=== PATIENT | male | born 1975 | race Two or more races ===

== ENCOUNTER 2019-11-04 00:59 | Inpatient (IN) | payer MEDICAID, OTHER ==
[~2019-11-04] VITALS: Ht 177.8 cm; Wt 124.3 kg
--- NOTE | 2019-11-04 01:01 | NUR ---
PT BIB [facility] C/O SI W/ A PLAN TO RUN INTO TRAFFIC. PER REPORT "PT DRANK 40 OZ OF ALCOHOL". PT AAOX4, VSS, RESPIRATIONS EVEN AND UNLABORED ON RA W/ NAD NOTED. PT CHANGED INTO GOWN, BELONGINGS PLACED TO LOCKER, SUICIDE PRECAUTIONS IMPLEMENTED. SITTER AT BEDSIDE FOR SAFETY. PT CONNECTED TO THE ELECTRONICS ASSEMBLER AND POX. CALL LIGHT WITHIN REACH
--- NOTE | 2019-11-04 01:09 | NUR ---
SHAREPOINT CONSULTANT AT BEDSIDE FOR BLOOD DRAW
[2019-11-04 01:34] LABS: BASOPHILS % (AUTO) 0.2 % (0.0-2.0); HEMATOCRIT 47 % (39-51); HEMOGLOBIN 15.7 g/dL (13.5-17.5); LYMPHOCYTES # (AUTO) 1.4 /CMM (0.8-4.8); LYMPHOCYTES % (AUTO) 11.1 % (20.0-44.0); MEAN CORPUSCULAR HGB CONC 33 g/dl (31.0-36.0); MEAN CORPUSCULAR VOLUME 91 fL (80-96); MONOCYTES # (AUTO) 0.7 /CMM (0.1-1.30); MONOCYTES % (AUTO) 5.5 % (2.0-12.0); NEUTROPHILS # (AUTO) 10.7 /CMM (1.8-8.9); NEUTROPHILS % (AUTO) 83.2 % (43.0-81.0); PLATELET COUNT (AUTO) 207 /CMM (150-450); RED BLOOD CELL COUNT(AUTO) 5.16 MIL/uL (4.5-6.0); WHITE BLOOD COUNT (AUTO) 12.9 K/uL (4.3-11.0)
[2019-11-04 01:54] LABS: ALBUMIN 4.3 g/dL (3.4-5.0); BILIRUBIN,DIRECT 0.5 mg/dL (0.0-0.2); CALCIUM, SERUM 8.2 mg/dL (8.5-10.1); CREATININE 1.1 mg/dL (0.6-1.3); POTASSIUM 3.8 mmol/L (3.5-5.1); SALICYLATE 4.1 mg/dL (2.8-20.0); TOTAL PROTEIN, SERUM 8.4 g/dL (6.4-8.2)
[2019-11-04] MEDS ORDERED: ACETAMINOPHEN ES 500 MG TABLET ONE (03:12)
[2019-11-04] MEDS ORDERED: IBUPROFEN 600 MG TABLET ONE (03:15)
[2019-11-04] MEDS ORDERED: ACETAMINOPHEN ES 500 MG TABLET PO ONE (03:30)
[2019-11-04] MEDS ORDERED: IBUPROFEN 600 MG TABLET PO ONE (03:30)
[2019-11-04] MEDS ORDERED: OLANZAPINE 5 MG TABLET ONE (03:33)
[2019-11-04] MEDS ORDERED: LIDOCAINE 2% JEL UROJET 10 ML MM ONE ×2 (03:37→04:00)
--- NOTE | 2019-11-04 03:48 | NUR ---
URINE COLLECTED AND SENT TO LAB
[2019-11-04 03:55] LABS: APPEARANCE,URINE CLEAR (CLEAR); BILIRUBIN,URINE SMALL (NEGATIVE); BLOOD, URINE MODERATE Ery/uL (NEGATIVE); COLOR,URINE YELLOW (YELLOW); KETONES,URINE 40 (NEGATIVE); LEUKOCYTE ESTERASE ,URINE NEGATIVE (NEGATIVE); NITRITE, URINE NEGATIVE (NEGATIVE); PROTEIN,URINE >=300 mg/dl (NEGATIVE); UGLUCOSE NEGATIVE (NEGATIVE); UROBILINOGEN,URINE 0.2 EU/dL (0.2)
[2019-11-04 03:59] LABS: BACTERIA,URINE Few /HPF (None Seen); FINE GRANULAR CASTS,URINE Few /LPF (None Seen); MUCUS,URINE Few /LPF (None Seen); SQUAMOUS EPITHELIAL CELL,UR Few /HPF (None Seen); WBC,URINE 0-2 /HPF (0-3)
[2019-11-04] MEDS ORDERED: OLANZAPINE 5 MG TABLET PO ONE (04:00)
[2019-11-04] MEDS ORDERED: CHLORDIAZEPOXIDE HCL 25 MG CAPSULE ONE (05:58)
[2019-11-04] MEDS ORDERED: CHLORDIAZEPOXIDE HCL 25 MG CAPSULE PO ONE (06:00)
[2019-11-04] MEDS ORDERED: IV NS 0.9% 1,000 ML BAG IV ONE ×2 (07:00→08:30)
--- NOTE | 2019-11-04 07:07 | NUR ---
RT AT BEDSIDE FOR ABG
[2019-11-04 07:12] LABS: ABG OXYGEN SATURATION 96.1 % (92.0-98.5); ABG PCO2 22.5 mmHg (35.0-45.0); ABG PH 7.436 (7.350-7.450); ABG PO2 90.1 mmHg (75.0-100.0); AaDO2 32.7 mmHg; COHb 0.7 % (0.5-1.5); MetHb 0.5 % (0.0-1.5); O2Hb 94.9 % (94.0-97.0); SITE, ABG Right Radial; VENT MODE, BG room air
[2019-11-04] MEDS ORDERED: LORAZEPAM INJ 2 MG/ML VIAL ONE ×2 (07:16→08:33)
--- NOTE | 2019-11-04 07:23 | NUR ---
PATIENT AA/OX4, BREATHING EVEN AND UNLABORED, KEPT COMFORTABLE. TACHYCARDIC ON MONITOR, MD AWARE.
[2019-11-04] MEDS ORDERED: LORAZEPAM INJ 2 MG/ML VIAL IV ONE ×2 (07:30→08:30)
--- NOTE | 2019-11-04 08:41 | NUR ---
PATIENT RESTING, NO DISTRESS NOTED. DENIES PAIN AT THIS TIME.
--- NOTE | 2019-11-04 08:46 | NUR ---
CALLED [facility]... SULLIVAN
--- NOTE | 2019-11-04 09:26 | NUR ---
CALLED [facility] AGAIN... NATE
[2019-11-04] MEDS ORDERED: ASPIRIN 81 MG TAB.CHEW PO ONE (09:30)
[2019-11-04] MEDS ORDERED: ASPIRIN 81 MG TAB.CHEW ONE (09:52)
--- NOTE | 2019-11-04 09:59 | NUR ---
LAB CALLED [facility]. (-)
--- NOTE | 2019-11-04 10:15 | NUR ---
REPORT GIVEN TO ROBYN HARMON.
--- NOTE | 2019-11-04 10:59 | NUR ---
PATIENT TRANSFERRED TO ROOM 114-1 VIA ACLS PROTOCOL IN STABLE CONDITION. NEEDS ATTENDED. KEPT COMFORTABLE.
[2019-11-04] MEDS ORDERED: MAG HYDROX/AL HYDROX/SIMETH 30 ML UDC PO PRN (11:00)
[2019-11-04] MEDS ORDERED: MORPHINE SULFATE INJ 2 MG/ML DISP.SYRIN IV PRN (11:00)
[2019-11-04] MEDS ORDERED: Z GUARD REMEDY 2 OZ OINT TP PRN (11:00)
[2019-11-04] MEDS ORDERED: LORAZEPAM INJ 2 MG/ML VIAL IV PRN (11:00)
[2019-11-04] MEDS ORDERED: MAGNESIUM HYDROXIDE 30 ML UDC PO PRN (11:00)
[2019-11-04] MEDS ORDERED: ONDANSETRON HCL/PF 4 MG/2 ML VIAL IVP PRN (11:00)
[2019-11-04] MEDS ORDERED: IPRATROPIUM NEB FS 0.5 MG/2.5 ML AMPUL.NEB NEB PRN (11:30)
[2019-11-04] MEDS ORDERED: NITROGLYCERIN 0.4 MG/TAB BOTTLE SL PRN (11:30)
[2019-11-04] MEDS ORDERED: ALBUTEROL FS 2.5 MG/0.5 ML VIAL.NEB NEB PRN (11:30)
[2019-11-04] MEDS: ENOXAPARIN SODIUM 40 MG/0.4 ML DISP.SYRIN SQ SCH (11:54)
[2019-11-04] MEDS: VALSARTAN 80 MG TABLET PO SCH (11:55)
[2019-11-04] MEDS ORDERED: Thiamine 100 MG in IV D5W 50 ML IV SCH (12:00)
[2019-11-04] MEDS: IV NS 0.9% 1,000 ML IV PRN (12:33)
--- NOTE | 2019-11-04 13:23 | NUR ---
RN BREE LIN FROM RADIOLOGY TOOK PATIENT TO CT SCAN OF PELVIC WITHOUT CONTRAST.
[2019-11-04] MEDS ORDERED: ALBUTEROL HALF STRENGTH 1.25 MG/3 ML VIAL.NEB NEB PRN (13:30)
[2019-11-04] MEDS ORDERED: CT SWABBABLE VALVE TRANS SET 1 EA INFUS.SET MC ONE (17:06)
[2019-11-04] MEDS ORDERED: IOHEXOL-350 100 ML VIAL IV ONE (17:06)
[2019-11-04] MEDS ORDERED: IV NS 0.9% 250 ML IV ONE (17:06)
--- NOTE | 2019-11-04 18:37 | NUR ---
RN CLOSING NOTES WILL ENDORSE TO PM NURSE. PATIENT IN BED A/O X 4, NASAL CANULA AT 2L SATTING AT 98%. TELE READING SINUS TACH 125-135. NO S/S OF RESPIRATORY DISTRESS. PATIENT HAS A 1:1 SITTER FOR 72 HOURS. IV ACCESS RH #22 RUNNING 100 ML/HR AND A MIDLINE ACCESS. SAFETY MEASURE IN PLACE, BED IS LOCKED AND IN LOWEST POSITION. SIDE RAILS UP X 2. CALL LIGHT WITHIN EASY REACH.
--- NOTE | 2019-11-04 19:30 | NUR ---
COLOR GRINDER NOTE PT IN BED AWAKE. ON 5150 HOLD, SITTER AT BED SIDE. PT IS A/O X 3, NO SOB, NO DISTRESS OR DISCOMFORT NOTED. DENIES PAIN. ON TELE ST HR 128. PT IS AMBULATOR WITH SLOW STEADY GAIT. RT HAND SL #22 G NS INFUSING AT 100 ML/HR, NO S/S OF INFILTRATION NOTED. ALSO MIDLINE INTACT AND PATENT IN CRISTHIAN. ALL NEEDS ATTENDED. SIDE RAILS UP X 2 AND CALL LIGHT WITHIN REACH. CONTINUE TO MONITOR HIM.
[2019-11-04 20:00] VITALS: BP 156/85
[2019-11-04] MEDS: FAMOTIDINE (20 MG) 20 MG TABLET PO SCH (20:07)
--- NOTE | 2019-11-04 20:25 | NUR ---
ELECTRICIAN THIRD NOTE SANDEEP LAMBERT INFORMED PT IS C/O MINOR HEADACHE AND DIARRHEA. SETTER OFF GAVE NEW ORDER AND CONTINUE TO MONITOR DIARRHEA IF X3 THE C DIFF PROTOCOL. CONTINUE TO MONITOR HIM.
[2019-11-04] MEDS ORDERED: ACETAMINOPHEN 325 MG TABLET PO PRN (20:30)
--- NOTE | 2019-11-04 21:00 | NUR ---
MANAGER BUSINESS SYSTEMS NOTE STOOL COLLECTED FOR C DIFF AND SENT TO LAB ORDERED PER PROTOCOL.
--- NOTE | 2019-11-04 21:08 | NUR ---
HEALTH CENTER ASSISTANT NOTE TYLENOL 325 MG PO GIVEN FOR MINOR HEADACHE 04/28, IVF INFUSING WELL. SANDWICH GIVEN PER PTS REQUEST.
--- NOTE | 2019-11-04 22:08 | NUR ---
MS RN NOTE HEADACHE SUBSIDED. CONTINUE TO MONITOR HIM.
--- NOTE | 2019-11-04 23:45 | NUR ---
DIRECTOR OF SERVICES NOTE ON TELE ST 125, CHECKED PT WHO IS C/O PAIN ALL OVER 09/28, MORPHINE SULFATE IVP GIVEN ORDERED FOR PAIN. CONTINUE TO MONITOR HIM. SITTER AT BED SIDE.
[2019-11-05] VITALS: BP 165/89
[2019-11-05] MEDS: IV NS 0.9% 1,000 ML IV PRN (01:38)
--- NOTE | 2019-11-05 02:38 | NUR ---
COLLAR SEWER NOTE PT IN BED STILL AWAKE WATCHING TV ON TELE MONITOR ST 122. ATIVAN 1 MG IVP GIVEN. IVF INFUSING WELL. NO S/S OF INFILTRATION NOTED.
--- NOTE | 2019-11-05 03:00 | NUR ---
MOUNTING INSPECTOR NOTE PT IN BED ASLEEP, NO DISTRESS OR DISCOMFORT NOTED. NO DISTRESS OR DISCOMFORT NOTED.
[2019-11-05 04:00] VITALS: BP 149/96
--- NOTE | 2019-11-05 06:37 | NUR ---
SERVICE CENTER REPRESENTATIVE NOTE PT IN BED AWAKE. ON TELE ST HR 113. NO DISTRESS OR DISCOMFORT NOTED. DENIES PAIN. IVF INFUSING WELL , NO S/S OF INFILTRATION NOTED. ALL NEEDS ATTENDED. SIDE RAILS UP X X 2 AND CALL LIGHT WITHIN REACH. SITTER AT BED SIDE. NO SI DURING THE SHIFT. WILL ENDORSE TO DAY SHIFT NURSE FOR CONTINUE TO CARE.
[2019-11-05 06:59] LABS: BASOPHILS % (AUTO) 0.3 % (0.0-2.0); EOSINOPHILS % (AUTO) 1.2 % (0.0-6.0); HEMATOCRIT 38 % (39-51); HEMOGLOBIN 12.7 g/dL (13.5-17.5); LYMPHOCYTES # (AUTO) 0.7 /CMM (0.8-4.8); LYMPHOCYTES % (AUTO) 12.1 % (20.0-44.0); MEAN CORPUSCULAR HGB CONC 34 g/dl (31.0-36.0); MEAN CORPUSCULAR VOLUME 90 fL (80-96); MONOCYTES # (AUTO) 0.2 /CMM (0.1-1.30); MONOCYTES % (AUTO) 3.2 % (2.0-12.0); NEUTROPHILS # (AUTO) 4.8 /CMM (1.8-8.9); NEUTROPHILS % (AUTO) 83.2 % (43.0-81.0); PLATELET COUNT (AUTO) 118 /CMM (150-450); RED BLOOD CELL COUNT(AUTO) 4.17 MIL/uL (4.5-6.0); WHITE BLOOD COUNT (AUTO) 5.7 K/uL (4.3-11.0)
[2019-11-05 07:06] LABS: CALCIUM, SERUM 8.3 mg/dL (8.5-10.1); CREATININE 0.8 mg/dL (0.6-1.3); MAGNESIUM 1.9 mg/dL (1.8-2.4); POTASSIUM 3.2 mmol/L (3.5-5.1)
[2019-11-05 07:17] LABS: THYROID STIMULATING HORMONE 2.449 uIU/mL (0.358-3.74)
[2019-11-05 07:29] LABS: PHOSPHORUS 0.9 mg/dL (2.5-4.9)
--- NOTE | 2019-11-05 07:45 | NUR ---
MANAGER SHOP/KHALIF OPENING NOTE RECEIVED PT IN BED, AWAKE AND ALERT, ORIENTED X4. NO ACUTE DISTRESS OR SOB NOTED. HOB ELEVATED TOLERATED. PT IS ON OXYGEN 2L SATURATING AT 97% AT THIS TIME. PT IS ON TELE MONITORING WITH ST HR AT 113 AT THIS TIME. PT'S SKIN IS INTACT AND PT IS AMBULATE TO THE RESTROOM WITHOUT ASSISTANCE. PT HAS A SITTER AT BESIDE (ELLEN) TO ENSURE PT'S SAFETY IS MAINTAINED AT ALL TIMES. PT IS ON CARDIAC DIET. PT HAS A CRISTHIAN MIDLINE AND A RIGHT HAND 22' THAT IS INTACT, PATENT AND FLUSHING WELL AT THIS TIME. NO INFILTRATION OR SIGNS OR SYMPTOMS OF INFECTION. PT DOES NOT REPORT DISCOMFORT CURRENTLY. PT IS ON A CARDIAC DIET. PT IS FULL CODE. CALL LIGHT WITHIN REACH AND FUNCTIONING. BED LOCKED AND IN LOWEST POSITION. WILL CONTINUE TO MONITOR AND ASSESS PT.
[2019-11-05 08:00] VITALS: BP 150/78
[2019-11-05] MEDS: FAMOTIDINE (20 MG) 20 MG TABLET PO SCH (08:50)
[2019-11-05] MEDS: VALSARTAN 80 MG TABLET PO SCH (08:51)
[2019-11-05] MEDS: ENOXAPARIN SODIUM 40 MG/0.4 ML DISP.SYRIN SQ SCH (08:52)
[2019-11-05] MEDS ORDERED: THIAMINE HCL 100 MG TABLET PO SCH (09:00)
[2019-11-05] MEDS ORDERED: FOLIC ACID 1 MG TABLET PO SCH (09:00)
[2019-11-05] MEDS ORDERED: LEVOFLOXACIN 750 MG /D5W 150ML 750 MG in PREMIX 1 EA IV SCH (09:00)
[2019-11-05] MEDS ORDERED: ASPIRIN 81 MG TAB.CHEW PO SCH (09:00)
[2019-11-05] MEDS ORDERED: POTASSIUM PHOSPHATE MM 15 MMOL in IV NS 0.9% 250 ML IV SCH (09:30)
[2019-11-05] MEDS: POTASSIUM PHOSPHATE MM 7.5 MMOL in IV NS 0.9% 100 ML IV SCH ×3 (10:23→15:30)
[2019-11-05 12:00] VITALS: BP 144/95
[2019-11-05] MEDS ORDERED: METOPROLOL TARTRATE 50 MG TABLET PO SCH (12:00)
[2019-11-05] MEDS ORDERED: METRONIDAZOLE 500MG/ NS 100ML 500 MG in PREMIX 1 EA IV SCH (12:00)
[2019-11-05] MEDS ORDERED: CHLORDIAZEPOXIDE HCL 10 MG CAPSULE PO PRN (12:30)
[2019-11-05 16:00] VITALS: BP 153/87
--- NOTE | 2019-11-05 16:25 | NUR ---
ANDROID FRAMEWORK DEVELOPER/KHALIF NOTE POTASSIUM BAG NOT HUNG TO DUE PT BEING DISCHARGED AND LEAVING TO A DIFFERENT HOSPITAL.
--- NOTE | 2019-11-05 16:30 | NUR ---
DRESSING ROOM ATTENDANT/KHALIF NOTE PT WAS PICKED UP VIA AMBULANCE. PT WAS TRANSFERRED VIA GURNEY. PT LEFT IN STABLE CONDITION WITH NO ACUTE DISTRESS OR SOB. PT LEFT WITH ALL HIS BELONGINGS. PT LEFT WITH DISCHARGE INSTRUCTIONS AND VERBALIZED UNDERSTANDING. FACILITY PROTOCOLS FOLLOWED AND CHARGE NURSE AWARE. ALL NEEDS MET AND ASSESSED WITH HELP OF ELLEN MOULTON). [facility] NURSE MORALES GIVEN REPORT AND VERBALIZED UNDERSTANDING. PT WAS TRANSFERRED TO THERE TELE UNIT IN STABLE CONDITION.
== END 2019-11-05 16:40 | disposition short-term general hospital (02) | DRG 720 ==
LOC: ER 01:01 → TELE1 10:24 → MEDSG1 11-05 08:03
PROVIDERS: ADMIT Nurse Practitioner Acute Care; ATTEND Nurse Practitioner Acute Care
PROC: 05HY33Z Insertion of Infusion Device into Upper Vein, Percutaneous Approach (ICD-10-PCS; principal; 2019-11-04)
DX: A41.9 Sepsis, unspecified organism (principal); F10.229 Alcohol dependence with intoxication, unspecified; R45.851 Suicidal ideations; I21.A1 Myocardial infarction type 2; Y90.8 Blood alcohol level of 240 mg/100 ml or more; F32.9 Major depressive disorder, single episode, unspecified; F17.210 Nicotine dependence, cigarettes, uncomplicated; E87.2 Acidosis; E11.9 Type 2 diabetes mellitus without complications; E66.9 Obesity, unspecified; I10 Essential (primary) hypertension; J45.909 Unspecified asthma, uncomplicated; F10.239 Alcohol dependence with withdrawal, unspecified; D72.829 Elevated white blood cell count, unspecified; R74.0 Nonspecific elevation of levels of transaminase and lactic acid dehydrogenase [LDH]; R10.9 Unspecified abdominal pain; Z68.39 Body mass index [BMI] 39.0-39.9, adult; J98.11 Atelectasis; E87.1 Hypo-osmolality and hyponatremia; E87.6 Hypokalemia; E83.39 Other disorders of phosphorus metabolism; K52.9 Noninfective gastroenteritis and colitis, unspecified; K57.32 Diverticulitis of large intestine without perforation or abscess without bleeding
CPT/HCPCS: 36410; 36415; 36600; 71045-TC; 80048-TC; 80061-TC; 80076-TC; 80305; 81000-TC; 82010-TC; 82803-TC; 83605-TC; 83690-TC; 83735-TC; 84100-TC; 84443-TC; 84484-TC; 85025-TC; 87040-TC; 87081-TC; 87086-TC; 93307-TC; A4216; C9803-CS; G0378; G0480; J1650; J1956; J2060; J2270; J3411; J3490; J7030; J7050; J7060; Q9967

== ENCOUNTER 2019-11-19 20:04 | Emergency (ER) | payer MEDICAID ==
[~2019-11-19] VITALS: Ht 175.3 cm; Wt 108.9 kg
--- NOTE | 2019-11-19 20:10 | NUR ---
PT CAME TO THE ED C/O SI W/ A PLAN TO JUMP INTO A MOVING CAR. PT AAOX4,RESPIRATIONS EVEN AND UNLABORED ON RA W/ NAD NOTED. PT CONNECTED TO THE MONITOR AND POX. PT CHANGED TO GOWN, BELONGINGS PLACED TO LOCKER. SUICIDE PRECAUTIONS IMPLEMENTED. SITTER AT BEDSIDE FOR SAFETY.
[2019-11-19 20:27] LABS: BASOPHILS # (AUTO) 0.1 /CMM (0.0-0.2); BASOPHILS % (AUTO) 1.1 % (0.0-2.0); EOSINOPHILS % (AUTO) 0.4 % (0.0-6.0); HEMATOCRIT 42 % (39-51); HEMOGLOBIN 14.4 g/dL (13.5-17.5); LYMPHOCYTES % (AUTO) 20.3 % (20.0-44.0); MEAN CORPUSCULAR HGB CONC 35 g/dl (31.0-36.0); MEAN CORPUSCULAR VOLUME 90 fL (80-96); MONOCYTES # (AUTO) 0.4 /CMM (0.1-1.30); MONOCYTES % (AUTO) 8.3 % (2.0-12.0); NEUTROPHILS # (AUTO) 3.3 /CMM (1.8-8.9); NEUTROPHILS % (AUTO) 69.9 % (43.0-81.0); PLATELET COUNT (AUTO) 210 /CMM (150-450); RED BLOOD CELL COUNT(AUTO) 4.64 MIL/uL (4.5-6.0); WHITE BLOOD COUNT (AUTO) 4.8 K/uL (4.3-11.0)
[2019-11-19] MEDS ORDERED: OLANZAPINE 5 MG TABLET ONE (20:29)
[2019-11-19] MEDS: OLANZAPINE 5 MG TABLET PO ONE (20:36)
--- NOTE | 2019-11-19 20:42 | NUR ---
KEVYN TO ER BED 12. INTOXICATED - ADMITS TO DRINKING ALCOHOL AND SMELLS OF ALCOHOL. NOT IN RESP DISTRESS. BROUGHT IN FOR ALCOHOL INTOXICATION AND SUICIDAL IDEATION WITH VERBALIZED PLAN OF RUNNING INFRONT OF A MOVING CAR. PT IS STRIPPED OF CLOTHING, GOWNED UP, BELONGINGS PLACED IN LOCKER LOCATED ON THE UTILITY ROOM. VISUAL BODY CHECK DONE FOR CONTRABAND. 1:1 SITTER AT BEDSIDE. MD WAS AT THE BEDSIDE FOR EVAL. ORDERS RECEIVED NOTED AND CARRIED OUT
[2019-11-19 21:03] LABS: CALCIUM, SERUM 8.4 mg/dL (8.5-10.1); CARBON DIOXIDE 22 mmol/L (21-32); CHLORIDE 94 mmol/L (98-107); CREATININE 1.1 mg/dL (0.6-1.3); GLUCOSE 153 mg/dL (74-106); POTASSIUM 3.3 mmol/L (3.5-5.1); SODIUM SERUM 135 mmol/L (136-145); UREA NITROGEN, BLOOD 10 mg/dL (7-18)
[2019-11-19 21:12] LABS: ALANINE AMINOTRANSFERASE 161 U/L (12-78); ALCOHOL, BLOOD 407 mg/dL (0-0); ALKALINE PHOSPHATASE 77 U/L (46-116); ASPARTATE AMINOTRANSFERASE 231 U/L (15-37); BILIRUBIN,DIRECT 0.9 mg/dL (0.0-0.2); BILIRUBIN,TOTAL 1.4 mg/dL (0.2-1.0); TOTAL PROTEIN, SERUM 7.5 g/dL (6.4-8.2)
[2019-11-19 21:14] LABS: ACETAMINOPHEN < 2 ug/ml (10-30); SALICYLATE 2.2 mg/dL (2.8-20.0)
--- NOTE | 2019-11-19 21:33 | NUR ---
[facility] paged per dr William.
--- NOTE | 2019-11-19 21:35 | NUR ---
PT STILL UNABLE TO PROVIDE URINE DESPITE MULTIPLE ATTEMPTS AND PROVIDED WITH WATER. AWARE. OK TO COLLECT URINE ONCE PT IS ABLE TO.
[2019-11-19] MEDS ORDERED: LIDOCAINE 2% JEL UROJET 10 ML MM ONE (21:36)
[2019-11-19] MEDS ORDERED: Magnesium 1GM/D5W 100ML PREMIX 100 ML IV ONE (21:39)
[2019-11-19] MEDS ORDERED: POTASSIUM CHLORIDE 20 MEQ TAB.PRT.SR PO ONE (21:39)
[2019-11-19] MEDS ORDERED: LORAZEPAM INJ 2 MG/ML VIAL ONE (22:13)
--- NOTE | 2019-11-19 22:30 | NUR ---
US AT BEDSIDE
--- NOTE | 2019-11-19 22:56 | NUR ---
GOT A CALL FROM Sean SPRING/ TRANSPORTATION INFO: PT TO BE TRANSFERRED TO [facility] UNDER DR GANN. NO FOR REPORT: [phone] [facility] TRANSPO, DIGITAL OPERATIONS ANALYST AT [phone].
[2019-11-19] MEDS: IV NS 0.9% 1,000 ML IV ONE (23:00)
[2019-11-19] MEDS: POTASSIUM CHLORIDE 20 MEQ TAB.PRT.SR PO ONE (23:00)
[2019-11-19] MEDS: LORAZEPAM INJ 2 MG/ML VIAL IV ONE (23:00)
--- NOTE | 2019-11-19 23:24 | NUR ---
REPORT GIVEN TO EDEN CHOI FOR [facility]
[2019-11-19 23:26] VITALS: BP 119/58
--- NOTE | 2019-11-19 23:50 | NUR ---
PT LEFT VIA AMBULANCE. [facility] FOR TRANSPORT TO [facility]. REPORT GIVEN. PT IS IN STABLE CONDITION FOR TRANSPORT
== END 2019-11-19 23:53 | disposition short-term general hospital (02) ==
LOC: ER 20:09
DX: R45.851 Suicidal ideations (principal); F10.129 Alcohol abuse with intoxication, unspecified; R10.84 Generalized abdominal pain; E87.6 Hypokalemia; R74.8 Abnormal levels of other serum enzymes; F41.9 Anxiety disorder, unspecified; F32.9 Major depressive disorder, single episode, unspecified; I10 Essential (primary) hypertension; J45.909 Unspecified asthma, uncomplicated; Z90.49 Acquired absence of other specified parts of digestive tract; Z91.013 Allergy to seafood; Z60.2 Problems related to living alone; Y90.8 Blood alcohol level of 240 mg/100 ml or more
CPT/HCPCS: 36415; 76705; 80048; 80076; 80307; 80329; 83690; 85025; 96361; 96374; 99285; G0480; J2060; J3475; J3490; J7030

== ENCOUNTER 2019-11-28 13:16 | Emergency (ER) | payer MEDICAID ==
[~2019-11-28] VITALS: Ht 170.2 cm; Wt 122.5 kg
--- NOTE | 2019-11-28 13:40 | NUR ---
bib ra frm home c/o altered with etoh noted on breath. Patient a/ox1-2, intoxicated, on and off sleeping. No distress noted. Attached to the green coffee blender. Dr. Soto at bedside for eval.
--- NOTE | 2019-11-28 13:40 | NUR ---
URINE SENT TO LAB.
--- NOTE | 2019-11-28 13:45 | NUR ---
Blood drawn and sent to lab.
[2019-11-28 13:54] LABS: BASOPHILS % (AUTO) 0.6 % (0.0-2.0); EOSINOPHILS % (AUTO) 1.2 % (0.0-6.0); HEMATOCRIT 43 % (39-51); HEMOGLOBIN 14.2 g/dL (13.5-17.5); LYMPHOCYTES # (AUTO) 1.5 /CMM (0.8-4.8); LYMPHOCYTES % (AUTO) 38.5 % (20.0-44.0); MEAN CORPUSCULAR HGB CONC 33 g/dl (31.0-36.0); MEAN CORPUSCULAR VOLUME 95 fL (80-96); MONOCYTES # (AUTO) 0.5 /CMM (0.1-1.30); MONOCYTES % (AUTO) 13.2 % (2.0-12.0); NEUTROPHILS # (AUTO) 1.9 /CMM (1.8-8.9); NEUTROPHILS % (AUTO) 46.5 % (43.0-81.0); PLATELET COUNT (AUTO) 177 /CMM (150-450); RED BLOOD CELL COUNT(AUTO) 4.56 MIL/uL (4.5-6.0)
[2019-11-28 14:00] LABS: CALCIUM, SERUM 8.2 mg/dL (8.5-10.1); CREATININE 1.1 mg/dL (0.6-1.3); POTASSIUM 3.8 mmol/L (3.5-5.1)
--- NOTE | 2019-11-28 14:01 | NUR ---
COVID SWAB SENT TO LAB.
[2019-11-28 14:08] LABS: ALBUMIN 3.9 g/dL (3.4-5.0); BILIRUBIN,DIRECT 0.6 mg/dL (0.0-0.2); SALICYLATE 3.1 mg/dL (2.8-20.0); TOTAL PROTEIN, SERUM 7.7 g/dL (6.4-8.2)
--- NOTE | 2019-11-28 15:41 | NUR ---
COVID NEGATIVE RESULT PER LAB.
--- NOTE | 2019-11-28 18:37 | NUR ---
PATIENT ASLEEP, NO DISTRESS NOTED.
--- NOTE | 2019-11-28 19:45 | NUR ---
PT AAOX4, VSS, RESPORATIONS EVEN AND UNLABORED ON RA W/ NAD NOTED. PT CONNECTED TO THE MONITOR AND POX. PT DENIES SI/HI. PT STATES HE FEELS BETTER. MD LOTTWARE
--- NOTE | 2019-11-28 20:00 | NUR ---
DR STONE AT BEDSIDE
--- NOTE | 2019-11-28 20:05 | NUR ---
FOOD TRAY PROVIDED
--- NOTE | 2019-11-28 22:15 | NUR ---
CALLED [facility]. WAITING FOR MD CALL BACK.
--- NOTE | 2019-11-28 22:26 | NUR ---
MIKI GOMEZ TALKING TO SCOTTIE MORALES MD REGARDING PT.
--- NOTE | 2019-11-28 22:54 | NUR ---
PT ACCEPTED TO [facility] ER BY DR LARRY. NUMBER TO GIVE REPORT [phone]. [facility] ETA [phone]
--- NOTE | 2019-11-28 23:08 | NUR ---
REPORT GIVEN TO EDEN CLARK FOR [facility]
--- NOTE | 2019-11-28 23:52 | NUR ---
TRANSPORT AT BEDSIDE REPORT GIVEN TO EMT.
[2019-11-28 23:58] VITALS: BP 158/65
== END 2019-11-28 23:59 | disposition short-term general hospital (02) ==
LOC: ER 13:19
DX: F10.129 Alcohol abuse with intoxication, unspecified (principal); Y90.8 Blood alcohol level of 240 mg/100 ml or more; K70.9 Alcoholic liver disease, unspecified; F13.10 Sedative, hypnotic or anxiolytic abuse, uncomplicated; Z90.49 Acquired absence of other specified parts of digestive tract; J45.909 Unspecified asthma, uncomplicated; F41.9 Anxiety disorder, unspecified; I10 Essential (primary) hypertension; E11.9 Type 2 diabetes mellitus without complications; R00.0 Tachycardia, unspecified
CPT/HCPCS: 36415; 80048; 80076; 80299; 80307 ×2; 80320; 85025; 87426; 99285; C9803; G0480

== ENCOUNTER 2019-12-13 21:17 | Emergency (ER) | payer MEDICAID ==
[~2019-12-13] VITALS: Ht 170.2 cm; Wt 122.5 kg
--- NOTE | 2019-12-13 21:28 | NUR ---
KEVYN FOUND DOWN IN AN ALLEY. TO ER BED 12. INTOXICATED - SMELLS OF ALCOHOL. UNABLE TO GET INFORMATION AT THIS TIME. NOTED LEFT AND RIGHT HAND ABRASSIONS. NOT IN RESP DISTRESS. RYAN RYAN AT BEDSIDE FOR EVAL. AWAITING ORDERS
--- NOTE | 2019-12-13 21:50 | NUR ---
PT IS AWAKE. VERBALIZED THAT HE HAD TOO MUCH TO DRINK
[2019-12-13] MEDS ORDERED: TDAP [DIPH/PERTUSSIS/TET] 0.5 ML VIAL IM ONE ×2 (21:52→22:00)
[2019-12-13] MEDS ORDERED: ONDANSETRON HCL/PF 4 MG/2 ML VIAL ONE (21:52)
[2019-12-13] MEDS ORDERED: FAMOTIDINE/PF INJ 20 MG/2 ML VIAL IV ONE ×2 (21:52→22:00)
--- NOTE | 2019-12-13 21:52 | NUR ---
PT TO CT ON CHADD
[2019-12-13 21:58] LABS: BASOPHILS % (AUTO) 0.4 % (0.0-2.0); EOSINOPHILS % (AUTO) 0.1 % (0.0-6.0); HEMATOCRIT 41 % (39-51); HEMOGLOBIN 13.3 g/dL (13.5-17.5); LYMPHOCYTES # (AUTO) 0.3 /CMM (0.8-4.8); LYMPHOCYTES % (AUTO) 6.4 % (20.0-44.0); MEAN CORPUSCULAR HGB CONC 33 g/dl (31.0-36.0); MEAN CORPUSCULAR VOLUME 95 fL (80-96); MONOCYTES # (AUTO) 0.2 /CMM (0.1-1.30); MONOCYTES % (AUTO) 5.4 % (2.0-12.0); NEUTROPHILS # (AUTO) 3.5 /CMM (1.8-8.9); NEUTROPHILS % (AUTO) 87.7 % (43.0-81.0); PLATELET COUNT (AUTO) 100 /CMM (150-450); RED BLOOD CELL COUNT(AUTO) 4.26 MIL/uL (4.5-6.0)
[2019-12-13] MEDS ORDERED: ONDANSETRON HCL/PF 4 MG/2 ML VIAL IV ONE (22:00)
[2019-12-13] MEDS ORDERED: IV NS 0.9% 1,000 ML BAG IV ONE ×2 (22:00→23:00)
[2019-12-13 22:39] LABS: ALANINE AMINOTRANSFERASE 155 U/L (12-78); ALBUMIN 3.7 g/dL (3.4-5.0); ALCOHOL, BLOOD 200 mg/dL (0-0); ALKALINE PHOSPHATASE 171 U/L (46-116); ASPARTATE AMINOTRANSFERASE 372 U/L (15-37); BILIRUBIN,DIRECT 2.2 mg/dL (0.0-0.2); BILIRUBIN,TOTAL 2.9 mg/dL (0.2-1.0); CALCIUM, SERUM 8.7 mg/dL (8.5-10.1); CARBON DIOXIDE 18 mmol/L (21-32); CHLORIDE 89 mmol/L (98-107); CREATININE 1.1 mg/dL (0.6-1.3); GLUCOSE 89 mg/dL (74-106); POTASSIUM 3.3 mmol/L (3.5-5.1); SODIUM SERUM 132 mmol/L (136-145); TOTAL PROTEIN, SERUM 7.8 g/dL (6.4-8.2); UREA NITROGEN, BLOOD 10 mg/dL (7-18)
[2019-12-13 22:54] LABS: ACETAMINOPHEN 0 ug/ml (10-30)
[2019-12-13] MEDS ORDERED: POTASSIUM CHLORIDE 20 MEQ TAB.PRT.SR PO ONE (23:00)
[2019-12-14] MEDS ORDERED: KETOROLAC TROMETHAMINE INJ 30 MG/ML VIAL IV ONE (02:00)
[2019-12-14] MEDS ORDERED: KETOROLAC TROMETHAMINE 15 MG/ML VIAL ONE (03:22)
[2019-12-14] MEDS ORDERED: POTASSIUM CHLORIDE 20 MEQ TAB.PRT.SR PO ONE (03:22)
[2019-12-14] MEDS ORDERED: LORAZEPAM INJ 2 MG/ML VIAL ONE (03:57)
[2019-12-14] MEDS ORDERED: LORAZEPAM INJ 2 MG/ML VIAL IV ONE (04:00)
--- NOTE | 2019-12-14 05:39 | NUR ---
Patient discharged to home in stable condition. Written and verbal after care instructions given. Patient verbalizes understanding of instruction. Pt ambulated out of E.D. with steady gait. vss.
--- NOTE | 2019-12-14 05:39 | NUR ---
IV removed. Catheter intact and site benign. Pressure and 4x4 applied to site. No bleeding noted.
[2019-12-14 05:40] VITALS: BP 132/79
== END 2019-12-14 05:40 | disposition home or self-care (01) ==
LOC: ER 21:19
DX: S60.222A Contusion of left hand, initial encounter (principal); S60.221A Contusion of right hand, initial encounter; S50.312A Abrasion of left elbow, initial encounter; S09.8XXA Other specified injuries of head, initial encounter; R10.84 Generalized abdominal pain; F10.129 Alcohol abuse with intoxication, unspecified; R74.01 Elevation of levels of liver transaminase levels; E86.0 Dehydration; E87.2 Acidosis; I10 Essential (primary) hypertension; E11.9 Type 2 diabetes mellitus without complications; J45.909 Unspecified asthma, uncomplicated; R00.0 Tachycardia, unspecified; Y90.7 Blood alcohol level of 200-239 mg/100 ml; Z91.013 Allergy to seafood; Z60.2 Problems related to living alone; Z90.89 Acquired absence of other organs; W01.0XXA Fall on same level from slipping, tripping and stumbling without subsequent striking against object, initial encounter; Y93.89 Activity, other specified; Y92.89 Other specified places as the place of occurrence of the external cause; Y99.8 Other external cause status
CPT/HCPCS: 36415; 70450; 71045; 73130; 74176; 76705; 80048; 80076; 80299; 80320; 83690; 85025; 90471; 90715; 96361; 96374; 96375 ×2; 99285; J1885; J2060; J2405; J3490; J7030 ×2; G0480